=== PATIENT | male | born 1965 | race Two or more races ===

== ENCOUNTER 2020-07-13 20:25 | Emergency (ER) | payer BC ==
[~2020-07-13] VITALS: Ht 175.3 cm; Wt 155.0 kg
[2020-07-13 22:08] LABS: ALBUMIN 2.2 g/dL (3.4-5.0); ALBUMIN/GLOBULIN RATIO 0.6 (1.0-1.7); CALCIUM 8.3 mg/dL (8.5-10.1); CREATININE 1.3 mg/dL (0.7-1.3); GFR 56.9; TOTAL BILIRUBIN 0.2 mg/dL (0.2-1.0)
[2020-07-13 22:09] LABS: POTASSIUM 3.2 mmol/L (3.5-5.1)
[2020-07-13 22:16] LABS: BASO % 1 % (0-3); EOS # 0.1 x10^3/uL (0.0-0.7); EOS % 2 % (0-3); HEMATOCRIT 36.3 % (39.0-53.0); HEMOGLOBIN 12.2 g/dL (13.0-17.5); LYMPH # 1.6 x10^3/uL (1.0-4.8); LYMPH % 25 % (24-48); MEAN CORPUSCULAR HEMOGLOBIN 29 pg (25-35); MEAN CORPUSCULAR HGB CONC 34 g/dL (31-37); MEAN CORPUSCULAR VOLUME 86 fL (79-100); MONO # 0.6 x10^3/uL (0.0-1.1); MONO % 9 % (0-9); NEUT % 64 % (31-73); PLATELET COUNT 211 x10^3/uL (140-400); RED BLOOD COUNT 4.25 x10^6/uL (4.30-5.70); RED CELL DISTRIBUTION WIDTH 13.2 % (11.5-14.5); WHITE BLOOD COUNT 6.3 x10^3/uL (4.0-11.0)
--- NOTE | 2020-07-13 22:34 | PHYS DOC ---
Past History Past Medical History: Diabetes (JAYDA WESTON APRN) Alcohol Use: None (JAYDA WESTON APRN) Adult General Chief Complaint Chief Complaint: LOWER EXT PAIN [facility] HPI Patient is a 55-year-old male presents emergency department complaining of right distal thigh pain that he associates with a blood clot. Patient denies any history of blood clots. Patient states that he slipped and fell yesterday landing on his right knee. Patient did not experience any pain at the time, patient states he went to bed, when he woke up and tried to ambulate he noticed pain at the distal right thigh. Patient states he can ambulate but it feels like somebody is stabbing him in the leg when he walks. Patient states he was talking with his son who convinced him that he probably has a blood clot. Patient states he came straight to emergency department to have a blood clot work-up. Patient states he has a longstanding history of idiopathic lymphedema, states he is supposed to wear compression garments in his lower extremities to prevent his lower extremity edema from getting bad. Patient states he takes medications for type 2 diabetes as well. Patient states his only surgical history is a right shoulder rotator cuff surgery 4 years ago, and calcium removed from his left foot 37 years ago. Patient states he takes Metformin, Januvia, Lasix, potassium chloride. (JAYDA WESTON APRN) Review of Systems Review of Systems Constitutional: Denies fever or chills [] Eyes: Denies change in visual acuity, redness, or eye pain [] HENT: Denies nasal congestion or sore throat [] Respiratory: Denies cough or shortness of breath [] Cardiovascular: No additional information not addressed in HPI [] GI: Denies abdominal pain, nausea, vomiting, bloody stools or diarrhea [] : Denies dysuria or hematuria [] Musculoskeletal: Denies back pain or joint pain [] Integument: Denies rash or skin lesions [] Neurologic: Denies headache, focal weakness or sensory changes [] Endocrine: Denies polyuria or polydipsia [] All other systems were reviewed and found to be within normal limits, except as documented in this note. (JAYDA WESTON APRN) Allergies Allergies Patient denies any allergies to medications. (JAYDA WESTON APRN) Physical Exam Physical Exam Constitutional: Well developed, well nourished, no acute distress, non-toxic appearance. HENT: Normocephalic, atraumatic, bilateral external ears normal, oropharynx moist, no oral exudates, nose normal. Eyes: PERRLA, EOMI, conjunctiva normal, no discharge. Neck: Normal range of motion, no tenderness, supple, no stridor. Cardiovascular:Heart rate regular rhythm, no murmur Lungs & Thorax: Bilateral breath sounds clear to auscultation Abdomen: Bowel sounds normal, soft, no tenderness, no masses, no pulsatile masses. Skin: Warm, dry, no erythema, no rash. Back: No tenderness, no CVA tenderness. Extremities: No tenderness, no cyanosis, no clubbing, ROM intact, marked +4 p itting edema lower extremities bilaterally. Patient states this is normal for him. Patient is not wearing his compression garments as he says he should. Pain elicited to the right lateral distal femur area just above knee to palpation. No crepitus noted, no bruising noted, erythema noted. Patient is able to ambulate on lower extremities without limp. Patient uses cane for ass istive device for walking. Neurologic: Alert and oriented X 3, normal motor function, normal sensory functi on, no focal deficits noted. Psychologic: Affect normal, judgement normal, mood normal. (JAYDA WESTON APRN) Current Patient Data Vital Signs Vital Signs Date Time Temp Pulse Resp B/P (MAP) Pulse Ox O2 Delivery O2 Flow Rate FiO2 07/13/20 20:35 98.6 102 16 162/70 (100) 98 Lab Results Laboratory Tests Test 07/13/20 21:01 White Blood Count 6.3 x10^3/uL (4.0-11.0) Red Blood Count 4.25 x10^6/uL (4.30-5.70) L Hemoglobin 12.2 g/dL (13.0-17.5) L Hematocrit 36.3 % (39.0-53.0) L Mean Corpuscular Volume 86 fL (79-100) Mean Corpuscular Hemoglobin 29 pg (25-35) Mean Corpuscular Hemoglobin Concent 34 g/dL (31-37) Red Cell Distribution Width 13.2 % (11.5-14.5) Platelet Count 211 x10^3/uL (140-400) Neutrophils (%) (Auto) 64 % (31-73) Lymphocytes (%) (Auto) 25 % (24-48) Monocytes (%) (Auto) 9 % (0-9) Eosinophils (%) (Auto) 2 % (0-3) Basophils (%) (Auto) 1 % (0-3) Neutrophils # (Auto) 4.0 x10^3uL (1.8-7.7) Lymphocytes # (Auto) 1.6 x10^3/uL (1.0-4.8) Monocytes # (Auto) 0.6 x10^3/uL (0.0-1.1) Eosinophils # (Auto) 0.1 x10^3/uL (0.0-0.7) Basophils # (Auto) 0.0 x10^3/uL (0.0-0.2) Sodium Level 143 mmol/L (136-145) Potassium Level 3.2 mmol/L (3.5-5.1) L Chloride Level 107 mmol/L (98-107) Carbon Dioxide Level 26 mmol/L (21-32) Anion Gap 10 (6-14) Blood Urea Nitrogen 29 mg/dL (8-26) H Creatinine 1.3 mg/dL (0.7-1.3) Estimated GFR (Cockcroft-Gault) 56.9 BUN/Creatinine Ratio 22 (6-20) H Glucose Level 171 mg/dL (70-99) H Calcium Level 8.3 mg/dL (8.5-10.1) L Total Bilirubin 0.2 mg/dL (0.2-1.0) Aspartate Amino Transferase (AST) 22 U/L (15-37) Alanine Aminotransferase (ALT) 23 U/L (16-63) Alkaline Phosphatase 61 U/L (46-116) Total Protein 6.0 g/dL (6.4-8.2) L Albumin 2.2 g/dL (3.4-5.0) L Albumin/Globulin Ratio 0.6 (1.0-1.7) L (JAYDA WESTON APRN) EKG EKG [] (JYADA WESTON APRN) Radiology/Procedures Radiology/Procedures [] (JAYDA WESTON APRN) Heart Score Risk Factors: Risk Factors: DM, Current or recent (<one month) smoker, HTN, HLP, family history of CAD, obesity. Risk Scores: Risk Factors: DM, Current or recent (<one month) smoker, HTN, HLP, family history of CAD, obesity. (JAYDA WESTON APRN) Course & Med Decision Making Course & Med Decision Making Pertinent Labs and Imaging studies reviewed. (See chart for details) 55-year-old male presents emergency department complaining he might have a blood clot in his leg. Patient did fall yesterday, patient states he had no pain until he woke up the next day. Patient's physical exam noticed marked bilateral lower leg edema, patient does have a history of idiopathic lymphedema. Related to patient's history of diabetes and history of lymphedema, labs were ordered and D-dimer was ordered to rule out blood clot. Imaging pending lab results at this time. At 2236. X-ray ordered of right femur, discussed patient case with ED attending Dr. Tran who assumed patient care at this time. (JAYDA WESTON APRN) Course & Med Decision Making I oversaw on the above date of service of this patient and discussed the care with the [employer] INST[employer]ER. I personally evaluated patient repeating certain aspects of history and physical exam. I reviewed entirety of ER work-up, I disclosed elevated D-dimer but discussed that there is no indication for ultrasound given extremely low risk of DVT. Patient's pain is distal and lateral right thigh at point of impact of fall. He is morbidly obese, likely suffering self-limiting musculoskeletal condition from impact. Pain location and description make DVT less likely diagnosis. I discussed that I would not have ordered D-dimer testing first place and disclosed that factors such as age, gender, weight etc. affect this value. Ultimately, patient hemodynamically stable, afebrile and ambulatory prior to departure with continued supportive care and PCP follow-up advised. I agree with the findings, plan of care, and disposition as documented. (SHANI TRAN DO) Ruthon Disclaimer Dragon Disclaimer This electronic medical record was generated, in whole or in part, using a voice recognition dictation system. (JAYDA WESTON APRN) Departure Departure: Impression: Primary Impression: Right knee pain Disposition: 01 DC HOME SELF CARE/HOMELESS Condition: GOOD Referrals: JUAN MANUEL AGRAWAL MD (PCP) Patient Instructions: Contusion, Knee Exercises, Generic, SportsMed Additional Instructions: It is likely that you have experienced a sprain/strain/contusion to the right lateral portion of your thigh that is likely causing you pain. As discussed today, there were no bony abnormalities. You had a D-dimer performed and was elevated but this was likely due to other comorbidities such as your weight, it was disclosed that it is very unlikely that given your history of presenting illness and physical exam findings of a blood clot given the lateral location of your pain. As such, the best treatment for this injury is continued range of motion (non weight bearing) to prevent a frozen joint. A Rest, Ice, Compression, Elevation (RICE) strategy may also be helpful in the acute phase. Please follow up with your primary doctor. Please return to the ED if new or worrisome symptoms arise. It was a pleasure to take care of you and I wish you the best going forward JAYDA WESTON APRN Jul 13, 2020 22:33 SHANI TRAN DO Jul 13, 2020 23:45
[2020-07-13] MEDS ORDERED: POTASSIUM CHLORIDE 20 MEQ TABLET.ER. PO ONE (22:45)
--- NOTE | 2020-07-13 23:18 | RAD ---
INDICATION: Reason: FALL, DISTAL FEMUR PAIN / Spl. Instructions: / History: COMPARISON: None. IMPRESSION: Right femur: 4 views obtained. Patella baja. No acute fracture or dislocation of the femur. Degenerat zohra changes of the hip and knee. Minimal irregularity at the superior pole the patella. Could be from a small osteophyte within the region Electronically signed by: Nawaf Conteh MD (07/13/2020 11:15 PM) [id number]
[2020-07-14] VITALS: BP 162/70
== END 2020-07-14 00:01 | disposition home or self-care (01) ==
LOC: ER 20:25
DX: M25.561 Pain in right knee (principal); R60.0 Localized edema; E11.9 Type 2 diabetes mellitus without complications; W01.0XXA Fall on same level from slipping, tripping and stumbling without subsequent striking against object, initial encounter; Y93.89 Activity, other specified; Y92.89 Other specified places as the place of occurrence of the external cause; Y99.8 Other external cause status
CPT/HCPCS: 36415; 73552; 80053; 85025; 85379; 99284

== ENCOUNTER → 2020-09-12 | Outpatient (CLI) | payer BC ==
--- NOTE | 2020-09-12 13:19 | RAD ---
History: Reason: pt has normal stool every 2-3 days, decreased appetite, diabetic / Spl. Instructions : / History: Procedure: The patient ate a standard meal containing 2 mCi Tc-99m sulfur colloid. Scintigraphic images of the a bdomen were obtained. Counts were obtained. Findings: Time to half emptying for solids is estimated at 32 minutes. Impression: Rapid gastric emptying with time to half emptying for solids is estimated at 32 minutes which is fas ter than typically seen. Electronically signed by: Nawaf Conteh MD (09/12/2020 1:16 PM) [id number]
== END ==
LOC: NM 08:26
PROVIDERS: ATTEND Internal Medicine Gastroenterology
DX: E11.43 Type 2 diabetes mellitus with diabetic autonomic (poly)neuropathy (principal)
CPT/HCPCS: 78264; A9541

== ENCOUNTER 2021-04-25 20:41 | Emergency (ER) | payer BC ==
[~2021-04-25] VITALS: Ht 175.3 cm; Wt 115.0 kg
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
[2021-04-25 21:04] VITALS: BP 162/70
[2021-04-25] MEDS ORDERED: IV RINGERS SOLUTION,LACTATED 1,000 ML IV SCH (21:15)
[2021-04-25] MEDS ORDERED: CONTRAST GIVEN. MC PRN (21:30)
[2021-04-25] MEDS ORDERED: IOHEXOL 300 MG/ML 75 ML VIAL. IV ONE (21:30)
[2021-04-25] MEDS ORDERED: MORPHINE SULFATE 10 MG/ML SYRINGE. SQ ONE (21:30)
[2021-04-25] MEDS ORDERED: ACETAMINOPHEN 500 MG TABLET PO ONE (22:30)
[2021-04-25 22:31] LABS: BASO % 1 % (0-3); EOS # 0.1 x10^3/uL (0.0-0.7); EOS % 2 % (0-3); HEMATOCRIT 34.3 % (39.0-53.0); HEMOGLOBIN 11.5 g/dL (13.0-17.5); LYMPH % 17 % (24-48); MEAN CORPUSCULAR HEMOGLOBIN 30 pg (25-35); MEAN CORPUSCULAR HGB CONC 34 g/dL (31-37); MEAN CORPUSCULAR VOLUME 90 fL (79-100); MONO # 0.4 x10^3/uL (0.0-1.1); MONO % 7 % (0-9); NEUT # 4.5 x10^3uL (1.8-7.7); NEUT % 73 % (31-73); PLATELET COUNT 203 x10^3/uL (140-400); RED BLOOD COUNT 3.82 x10^6/uL (4.30-5.70); WHITE BLOOD COUNT 6.1 x10^3/uL (4.0-11.0)
[2021-04-25 22:39] LABS: CALCIUM 8.4 mg/dL (8.5-10.1); CREATININE 1.6 mg/dL (0.7-1.3); GFR 44.8; POTASSIUM 4.7 mmol/L (3.5-5.1)
[2021-04-25 22:50] LABS: ALBUMIN 2.9 g/dL (3.4-5.0); DIRECT BILIRUBIN 0.1 mg/dL (0.0-0.2); MAGNESIUM 2.4 mg/dL (1.8-2.4); TOTAL BILIRUBIN 0.2 mg/dL (0.2-1.0); TOTAL PROTEIN 6.1 g/dL (6.4-8.2)
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
[2021-04-26] MEDS ORDERED: HYDR-1179 PO ×2 (00:08→00:11)
[2021-04-26] MEDS ORDERED: CYCL-331 PO (00:08)
[2021-04-26] MEDS ORDERED: KETOROLAC 60 MG/2 ML VIAL. IM ONE (00:15)
[2021-04-26] MEDS ORDERED: ORPHENADRINE CITRATE 60 MG/2 ML VIAL. IM ONE (00:15)
--- NOTE | 2021-04-26 00:34 | EKG ---
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
[2021-04-26 01:22] LABS: BARBITURATES NEG (NEG); BENZODIAZEPINES NEG (NEG); CANNABINOIDS NEG (NEG); COCAINE NEG (NEG); METHADONE NEG (NEG); OPIATES NEG (NEG); PHENCYCLIDINE NEG (NEG)
[2021-04-26 01:24] LABS: BACTERIA,URINE FEW /HPF (0-FEW); BILIRUBIN,URINE NEG (NEG); CLARITY,URINE HAZY; COLOR,URINE YELLOW; GLUCOSE,URINE 100 mg/dL (NEG); NITRITE,URINE NEG (NEG); UROBILINOGEN,URINE 0.2 mg/dL (0.2 mg/dL); WBC,URINE 0 /HPF (0-4)
[2021-04-26 01:25] LABS: AMORPHOUS SEDIMENT,UR PRESENT /HPF; HYALINE CASTS, URINE FEW /HPF; SQUAMOUS EPITHELIAL CELL,UR OCC /LPF
[2021-04-26 01:32] LABS: AMPHETAMINE/METHAMPHETAMINE NEG (NEG)
== END 2021-04-26 00:33 | disposition home or self-care (01) ==
LOC: ER 20:41
DX: S20.219A Contusion of unspecified front wall of thorax, initial encounter (principal); I10 Essential (primary) hypertension; E86.0 Dehydration; R94.4 Abnormal results of kidney function studies; D64.9 Anemia, unspecified; E11.9 Type 2 diabetes mellitus without complications; V43.52XA Car driver injured in collision with other type car in traffic accident, initial encounter; Y93.89 Activity, other specified; Y92.410 Unspecified street and highway as the place of occurrence of the external cause; Y99.8 Other external cause status
CPT/HCPCS: 36415; 71046; 80048; 80076; 80307; 81001; 82550; 83690; 83735; 83880; 84484; 85025; 93005; 96372; 99285; G0480; J1885; J2360